=== PATIENT | female | born 1995 | race African-American/Black ===

== ENCOUNTER 2016-10-22 11:45 | Emergency (ER) | payer OTHER ==
[2016-10-22] MEDS ORDERED: ACETAMINOPHEN 325 MG TABLET (FP) PO ONE (12:14)
[2016-10-22 12:22] VITALS: BP 131/70; PULSE 88; TEMP 97.8; BMI 28.1
[2016-10-22] MEDS ORDERED: ACETAMINOPHEN 325 MG TABLET (FP) ONE (12:25)
--- NOTE | 2016-10-22 12:30 | PDOC ---
History of Present Illness - General Chief Complaint: Back Pain Stated Complaint: LOWER BACK PAIN Time Seen by Provider: 10/22/16 11:54 - History of Present Illness Initial Comments: 10/22/16 12:16 CHIEF COMPLAINT: pain to tailbone HISTORY OF PRESENT ILLNESS: 21 yo recently F (unknown EGA) presents to fast track with pain to tailbone. Patient states she feels "something kind of like a pressure when I sit for a long time." She denies any fever, chills, nausea, vomiting, diarrhea, constipation, or rectal bleeding. She denies any rectal pain or lower back pain and states "it's literally just that one spot on my bone down there." Denies any trauma or injury to the area but does report recent sexual intercourse. PAST MEDICAL HISTORY: Denies past medical history FAMILY HISTORY: Denies SOCIAL HISTORY: Denies tobacco, alcohol, illicit drug use. SURGICAL HISTORY: Denies ALLERGIES: No known drug allergies REVIEW OF SYSTEMS General/Constitutional: Denies fever or chills. Denies weakness, weight change. HEENT: Denies change in vision. Denies ear pain or discharge. Denies sore throat. Cardiovascular: Denies chest pain or shortness of breath. Respiratory: Denies cough, wheezing, or hemoptysis. Gastrointestinal: Denies nausea, vomiting, diarrhea or constipation. Denies rectal bleeding. Genitourinary: Denies dysuria, frequency, or change in urination. Musculoskeletal: Pain to tailbone. Denies joint or muscle swelling or pain. Denies neck or back pain. Skin and breasts: Denies rash or easy bruising. PHYSICAL EXAM General Appearance: Well-appearing, appropriately dressed. No apparent distress , no intoxication. HEENT: EOMI, PERRLA, normal voice. No conjunctival pallor. No photophobia, scleral icterus. Respiratory/Chest: Lungs CTAB. Cardiovascular: RRR. S1, S2. Gastrointestinal/Abdominal: Normal bowel sounds. Abdomen soft, non-distended. No tenderness or rebound tenderness. No organomegaly, pulsatile mass, guarding , hernia, hepatomegaly, splenomegaly. Musculoskeletal/Extremities: Reproducible pain to coccyx on palpation. No redness, erythema, swelling, or any signs of abscess. No tenderness to rectum. Normal inspection. FROM of all extremities, normal capillary refill. Pelvis Stable. No CVA tenderness. No tenderness to extremities, pedal edema, swelling , erythema or deformity. Integumentary: Appropriate color, dry, warm. No cyanosis, erythema, jaundice or rash Neurologic: manufacturing applications engineer II-XII intact. Fully oriented, alert. Appropriate mood/affect. Motor strength 5/5. No appreciable EOM palsy, facial droop or sensory deficit. Past History - Past Medical History Allergies/Adverse Reactions: Allergies Allergy/AdvReac Type Severity Reaction Status Date / Time No Known Allergies Allergy Verified 10/22/16 11:49 Home Medications: Ambulatory Orders Acetaminophen [Tylenol -] 500 mg PO Q6H PRN #100 tablet 10/22/16 Other medical history: denies - Psycho/Social/Smoking Cessation Hx Suicidal Ideation: No Smoking History: Never smoked Information on smoking cessation initiated: No Hx Alcohol Use: No Drug/Substance Use Hx: No Substance Use Type: None *Physical Exam - Vital Signs Last Vital Signs Temp Pulse Resp BP Pulse Ox 97.8 F 88 18 131/70 100 10/22/16 11:47 10/22/16 11:47 10/22/16 11:47 10/22/16 11:47 10/22/16 11:47 Medical Decision Making - Medical Decision Making 10/22/16 12:54 21 yo recently F (unknown EGA) presents to fast track with pain to tailbone. Exam unremarkable. No visible signs of infection, abscess, pilonidal cyst. Clinical presentation consistent with coccydynia. Patient states she is , will give Tylenol for pain control w/ follow up with ortho. Advised patient of signs and symptoms for return to ER. Patient verbalized understanding and agrees to plan. *DC/Admit/Observation/Transfer Diagnosis at time of Disposition: Coccyx pain - Discharge Dispostion Disposition: HOME Condition at time of disposition: Stable Admit: No - Prescriptions Prescriptions: Acetaminophen [Tylenol -] 500 mg PO Q6H PRN #100 tablet PRN Reason: Pain - Referrals Referrals: Bartolo Cotter MD [Staff Physician] - Feroz Jensen MD [Staff Physician] - - Patient Instructions Printed Discharge Instructions: DI for Coccydynia Additional Instructions: Please take medication as prescribed. As discussed, please follow up with orthopedics if symptoms persist past 3-5 days. Also, please follow up with OBGYN for care during your . If you experience any fever, nausea, vomiting, diarrhea, rectal pain, rectal bleeding, swelling, or notice any bump or lesion in the rectal area, please return to the ER.
== END 2016-10-22 12:42 | disposition home or self-care (01) ==
LOC: JERFT 11:45
DX: O26.899 Other specified pregnancy related conditions, unspecified trimester (principal); M53.3 Sacrococcygeal disorders, not elsewhere classified; Z3A.00 Weeks of gestation of pregnancy not specified
CPT/HCPCS: 99281-25

== ENCOUNTER 2024-03-15 11:42 | Inpatient (IN) | payer OTHER ==
[2024-03-15 12:38] LABS: BASO % 0.6 % (0-2.0); EOS % 1.2 % (0-4.5); HEMATOCRIT 34.9 % (32.4-45.2); HEMOGLOBIN 12.1 GM/dL (10.7-15.3); MCH 24.4 pg (25.7-33.7); MCHC 34.7 g/dl (32.0-36.0); MEAN CELL VOLUME 70.3 fl (80-96); MEAN PLT VOLUME 8.3 fl (7.5-11.1); MONO % 8.8 % (3.8-10.2); NEUT % 58.4 % (42.8-82.8); PLATELET COUNT 248 10^3/uL (134-434); RBC 4.97 M/mm3 (3.60-5.2); RDW 14.8 % (11.6-15.6); WHITE BLOOD COUNT 6.6 K/mm3 (4.0-10.0)
[2024-03-15 12:57] LABS: INR 0.88 (0.83-1.09); PROTHROMBIN TIME (PATIENT) 10.2 SEC (9.7-13.0)
[2024-03-15 13:08] LABS: POTASSIUM 4.3 mmol/L (3.5-5.1)
[2024-03-15 13:10] LABS: BLOOD UREA NITROGEN 5.4 mg/dL (7-18); CALCIUM 8.9 mg/dL (8.5-10.1)
[2024-03-15 13:13] VITALS: BMI 36.9
[2024-03-15 13:14] LABS: CREATININE 0.7 mg/dL (0.55-1.3)
[2024-03-15] MEDS: ELECTROLYTE-148 SOLN 1,000 ML IV SCH (13:30)
[2024-03-15] MEDS ORDERED: OXYTOCIN 30 UNITS in 0.9% NS 30 UNIT/500 ML INFUS.BAG IVPB ONE (13:58)
[2024-03-15] MEDS: OXYTOCIN 30 UNITS in 0.9% NS 30 UNIT/500 ML INFUS.BAG IVPB SCH (14:20)
[2024-03-15 15:46] LABS: HIV INTERPRETATION NEGATIVE (NEGATIVE)
[2024-03-15] MEDS ORDERED: PROMETHAZINE HCL 25 MG/1 ML VIAL ONE (19:31)
[2024-03-15] MEDS ORDERED: BUTORPHANOL TARTRATE 2 MG/ML VIAL ONE (19:31)
[2024-03-15] MEDS: BUTORPHANOL TARTRATE 2 MG/ML VIAL IVPB ONE (19:35)
[2024-03-15] MEDS: PROMETHAZINE HCL 25 MG/1 ML VIAL IVPB ONE (19:35)
[2024-03-15] MEDS ORDERED: OXYTOCIN 20 UNITS in 0.9% NS 20 UNIT/1,000 ML INFUS.BAG IV ONE (20:48)
[2024-03-15] MEDS ORDERED: LIDOCAINE HCL 1% PRESERVATIVE FREE - 30ML VIAL ONE (20:48)
[2024-03-15] MEDS: OXYTOCIN 20 UNITS in 0.9% NS 20 UNIT/1,000 ML INFUS.BAG IV SCH (21:00)
[2024-03-15] MEDS ORDERED: WITCH HAZEL 50% (TUCKS) 40 PAD/JAR PAD TP PRN (21:29)
[2024-03-15] MEDS ORDERED: METHYLERGONOVINE MALEATE 0.2 MG/1 ML AMP IM PRN (21:29)
[2024-03-15] MEDS ORDERED: ACETAMINOPHEN 325 MG TABLET (FP) PO PRN (21:29)
[2024-03-15] MEDS ORDERED: BISACODYL 10 MG SUPP.RECT RC PRN (21:29)
[2024-03-15] MEDS ORDERED: BENZOCAINE 20% 57 GM BOTTLE TP PRN (21:29)
[2024-03-15] MEDS ORDERED: BENZOCAINE 28 GM HEMORRHOIDAL OINTMENT TP PRN (21:29)
[2024-03-15] MEDS ORDERED: oxyCODONE HCL 5 MG TABLET PO PRN (21:29)
[2024-03-15] MEDS: IBUPROFEN 600 MG TABLET (FP) PO PRN (23:41)
[2024-03-16 08:00] LABS: BASO % 0.3 % (0-2.0); EOS % 0.4 % (0-4.5); HEMATOCRIT 30.3 % (32.4-45.2); HEMOGLOBIN 10.7 GM/dL (10.7-15.3); LYMPH % 20.2 % (8-40); MCH 24.8 pg (25.7-33.7); MCHC 35.2 g/dl (32.0-36.0); MEAN CELL VOLUME 70.4 fl (80-96); MEAN PLT VOLUME 8.4 fl (7.5-11.1); MONO % 8.2 % (3.8-10.2); NEUT % 70.9 % (42.8-82.8); PLATELET COUNT 205 10^3/uL (134-434); RDW 14.9 % (11.6-15.6); WHITE BLOOD COUNT 10.5 K/mm3 (4.0-10.0)
[2024-03-16] MEDS: FERROUS SO4 325 MG TABLET (FP) PO SCH (09:06)
[2024-03-16] MEDS: PRENATAL VITAMINS W/ FOLIC ACID TABLET (FP) PO SCH (09:06)
[2024-03-16 17:58] VITALS: RESP 18
[2024-03-16] MEDS ORDERED: SENNOSIDES/DOCUSATE COMBO (SENNA PLUS) TABLET (UD) PO PRN (22:00)
[2024-03-17 10:05] VITALS: BP 116/74; PULSE 83; TEMP 98.3
== END 2024-03-17 12:30 | disposition home or self-care (01) | DRG 560 ==
LOC: JLDR 11:42 → J3W 23:15
PROVIDERS: ADMIT Obstetrics & Gynecology; ATTEND Obstetrics & Gynecology
PROC: 10E0XZZ Delivery of Products of Conception, External Approach (ICD-10-PCS; principal; 2024-03-15)
PROC: 0W8NXZZ Division of Female Perineum, External Approach (ICD-10-PCS; 2024-03-15)
DX: O80 Encounter for full-term uncomplicated delivery (principal); Z3A.39 39 weeks gestation of pregnancy; Z37.0 Single live birth
CPT/HCPCS: 36415; 59409; 80048; 85025; 85610; 85730; 86780; 86850; 86900; 86901; 87389